=== PATIENT | female | born 1980 | race Caucasian/White ===

== ENCOUNTER 2021-09-18 19:30 | Emergency (ER) | payer BC | END 2021-09-18 22:50 | disposition home or self-care (01) | LOC: ER1 19:30 | DX: S43.014A Anterior dislocation of right humerus, initial encounter (principal); S93.401A Sprain of unspecified ligament of right ankle, initial encounter; W10.9XXA Fall (on) (from) unspecified stairs and steps, initial encounter; Y92.009 Unspecified place in unspecified non-institutional (private) residence as the place of occurrence of the external cause | CPT/HCPCS: 23650; 71045; 73030; 73610; 99283 ==

== ENCOUNTER → 2021-10-03 | Outpatient (CLI) | payer BC | LOC: KOH-I 08:47 | DX: M24.411 Recurrent dislocation, right shoulder (principal); M21.821 Other specified acquired deformities of right upper arm | CPT/HCPCS: 73221 ==